=== PATIENT | female | born 1965 | race Caucasian/White ===

== ENCOUNTER 2017-09-27 09:46 | Day surgery (SDC) | payer BC ==
[2017-09-27] MEDS ORDERED: ALTEPLASE 2 MG VIAL IVP PRN (10:15)
[2017-09-27] MEDS ORDERED: NALOXONE HCL 0.4 MG/ML INJ IVP PRN (10:15)
[2017-09-27] MEDS ORDERED: MIDAZOLAM 2 MG/2 ML VIAL IVP PRN (10:15)
[2017-09-27] MEDS ORDERED: PROTAMINE SULFATE 50 MG/5 ML VIAL IVP PRN (10:15)
[2017-09-27] MEDS ORDERED: MEPERIDINE 25 MG/ML SYR IVP PRN (10:15)
[2017-09-27] MEDS ORDERED: FLUMAZENIL 0.5 MG/5 ML MDV IVP PRN (10:15)
[2017-09-27] MEDS ORDERED: fentaNYL 100 MCG/2 ML INJ IVP PRN (10:15)
[2017-09-27] MEDS ORDERED: GLUCAGON HCL 1 MG VIAL IVP PRN (10:15)
[2017-09-27] MEDS ORDERED: NS 1,000 ML IV SCH (10:15)
[2017-09-27] MEDS ORDERED: HEPARIN 10,000 UNIT/10 ML MDV (1,000 UNIT/ML) IVP PRN (10:15)
--- NOTE | 2017-09-27 11:21 | PDGENHP ---
History & Physical Chief Complaint: BILATERAL PET AVID SLICK LYMPH NODES History of Present Illness: H/O BREAST CA, 2000, S/P BILATERAL MASTECTOMY WITH RECONSTRUCTION. VISDOM TEETH, UFE. Pertinent Past, Social, Family History: SMOKED TEENAGER, QUIT MANY YEARS AGO. LIVES WITH . GROWN KIDS. Relevant Physical Exam: NEW BILATERAL IMPLANTS X 2 WEEKS OLD. Cardiorespiratory Assessment: RRR, CTA
--- NOTE | 2017-09-27 11:22 | PDPROPOC ---
Sedation Plan of Care Sedation Plan of Care: vital signs stable, mental status noted, patient educated of risks, benefits, alternatives, patient can tolerate sedation ASA Classification: ASA 3 Planned drugs: fentanyl, midazolam Mallampati Score: Class 2 Mallampati Reference Image: Patient passed 3-3-2 rule?: Yes
[2017-09-27] MEDS ORDERED: LIDOCAINE 1% 300 MG/30 ML SDV ONE (11:31)
[2017-09-27] MEDS ORDERED: ONDANSETRON 4 MG/2 ML VIAL IVP PRN (12:38)
[2017-09-27] MEDS ORDERED: ACETAMINOPHEN 325 MG TAB PO PRN (12:38)
--- NOTE | 2017-09-27 12:40 | PDRADPN ---
Radiology Procedure Note Date of Procedure: 09/27/17 Radiologist: Nikole Grimm Anesthesia: IV Sedation Pre-op Diagnosis: pet avid lymph nodes Post-op Diagnosis: same Indication: h/o breast ca Procedure: CT/US guided LN biopsy Finding(s): see report Inf/Abcess present in the surg proc area at time of surgery?: No Complications: none
[2017-09-27 13:58] VITALS: BP 116/75
== END 2017-09-27 13:57 | disposition home or self-care (01) ==
LOC: FIMAGING 09:46
PROVIDERS: ATTEND Internal Medicine Hematology & Oncology
DX: Z12.89 Encounter for screening for malignant neoplasm of other sites (principal); D36.0 Benign neoplasm of lymph nodes; Z87.891 Personal history of nicotine dependence; Z85.3 Personal history of malignant neoplasm of breast
CPT/HCPCS: J2250; J2310; J3010